=== PATIENT | female | born 1945 | race Caucasian/White ===

== ENCOUNTER 2017-04-30 06:31 | Day surgery (SDC) | payer MEDICARE, MEDICAID ==
[2017-04-24 14:58] LABS: BASOPHILS % (AUTO) 0.5 % (0-1); EOSINOPHILS # (AUTO) 0.8 X10'3 (0-0.9); EOSINOPHILS % (AUTO) 9.2 % (0-6); LYMPHOCYTES # (AUTO) 2.2 X10'3 (1.1-4.8); LYMPHOCYTES % (AUTO) 25.9 % (21-51); MEAN CORPUSCULAR HEMOGLOBIN 31.2 PG (27.0-31.0); MEAN CORPUSCULAR VOLUME 91.8 FL (78-98); MEAN PLATELET VOLUME 8.7 FL (7.4-10.4); MONOCYTES # (AUTO) 0.5 X10'3 (0-0.9); MONOCYTES % (AUTO) 6.4 % (2-12); PRE OP HEMATOCRIT 40.5 % (35.0-45.0); PRE OP HEMOGLOBIN 13.8 g/dL (12.0-16.0); PRE OP PLATELET COUNT 278 X10'3 (140-440); RED BLOOD COUNT 4.41 X10'6 (4.20-5.60); RED CELL DISTRIBUTION WIDTH 13.8 % (11.5-14.5)
[2017-04-24 15:04] LABS: ALBUMIN 3.5 G/DL (3.4-5.0); ALBUMIN/GLOBULIN RATIO 1.1 (1.1-1.5); ALKALINE PHOSPHATASE 51 IU/L (46-116); BLOOD UREA NITROGEN 18 MG/DL (7-18); BUN/CREATININE RATIO 16.4 (6.6-38.0); CALCIUM 8.5 MG/DL (8.5-10.1); CHLORIDE 106 MMOL/L (99-107); CLARITY,URINE Clear (Clear); COLOR,URINE Yellow (Yellow); GLUCOSE, URINE Negative (Neg); KETONES,URINE Negative (Neg); LEUKOCYTE ESTERASE ,URINE Small (Neg); NITRITES, URINE Negative (Neg); OCCULT BLOOD,URINE Negative (Neg); PH,URINE 6.5 (4.8-8.0); PRE OP ALT 19 U/L (30-65); PRE OP ANION GAP 9 (8-16); PRE OP AST 15 U/L (10-37); PRE OP BILIRUB, TOTAL 0.4 MG/DL (0.0-1.0); PRE OP GLUCOSE 142 MG/DL (70-104); PRE OP SODIUM 141 MMOL/L (135-145); PROTEIN,URINE Negative (Neg); TOTAL CARBON DIOXIDE 26.5 MMOL/L (24-32); TOTAL PROTEIN 6.7 G/DL (6.4-8.2); eGFR 49 ML/MIN
[2017-04-24 15:24] LABS: UA COLLECTION TYPE CLN CATCH MIDSTREAM
[2017-04-24 15:34] LABS: BACTERIA,URINE NONE SEEN /HPF (Neg); RBC,URINE 0-2 /HPF (0-2); SQUAMOUS EPITHELIAL CELL,UR FEW /LPF (FEW); WBC,URINE 0-4 /HPF (0-4)
[~2017-04-30] VITALS: Ht 175.3 cm; Wt 80.7 kg
[2017-04-30] VITALS (12 sets, daily range): BP systolic 113–142; BP diastolic 44–88
[~2017-04-30 06:31] MED LIST: ALBU18HF2 INH; ASCO500C15 PO; ASPI81TA48 PO; BUSP10TA11 PO; DIT5T PO; DOCUMENT DATE & TIME OF BETA-BLOCKER PO ONE; DULO-31 PO; FENO160T13 PO; GEMF600T PO; ISOS120T9 PO; LEVO25TA2 PO; LORA-512 PO; LYR25C PO; MELA3TAB PO; METO-539 PO; MORP15TA PO; NITR0.4T51 SL; PANT-47 PO; SIMV20TA5 PO; VENL75CA55 PO; famotidine 20mg tablet PO ONE; ringers solution, lacted 1,000 ML IV SCH
[2017-04-30] MEDS ORDERED: cefazolin/dext.iso 2gm/50ml 50 ML IV ONE (06:37)
[2017-04-30] MEDS ORDERED: LIDOcaine 1% (10mg/ml) 2ml vial ONE (06:53)
[2017-04-30] MEDS ORDERED: BUPIVAcaine/PF 2.5 mg/ml (0.25%) 30ml vial ONE ×2 (08:19→14:19)
[2017-04-30] MEDS ORDERED: epiNEPHrine 1 mg/ml inj ONE (14:19)
[2017-04-30] MEDS ORDERED: ceFAZolin 1000mg inj ONE (14:19)
[2017-04-30] MEDS ORDERED: meperidine/PF 50mg/ml syringe ONE (14:34)
[2017-04-30] MEDS ORDERED: midazolam 2 mg/2 ml injection ONE (14:34)
[2017-04-30] MEDS ORDERED: neostigmine methylsulfate 1 MG/ML 10ml vial ONE ×2 (14:35)
[2017-04-30] MEDS ORDERED: propofol inj 20 ML IV ONE (14:35)
[2017-04-30] MEDS ORDERED: dexamethasone sod phosphate 4mg/ml inj. ONE (14:35)
[2017-04-30] MEDS ORDERED: LIDOcaine 1%/PF (10mg/ml) 5ml vial ONE (14:35)
[2017-04-30] MEDS ORDERED: ondansetron/PF 4mg/2ml inj ONE (14:35)
[2017-04-30] MEDS ORDERED: glycopyrrolate 0.2mg/ml inj ONE (14:35)
[2017-04-30] MEDS ORDERED: rocuronium 10mg/ml inj IV ONE (14:35)
[2017-04-30] MEDS ORDERED: ringers solution, lacted 1,000 ML IV SCH (15:07)
[2017-04-30] MEDS: ceFAZolin 1000mg inj ONE ×2 (15:08→15:09)
[2017-04-30] MEDS ORDERED: hydrALAZINE 20mg/ml inj. IV PRN (15:10)
[2017-04-30] MEDS ORDERED: fentaNYL/PF 50MCG/1 ML 2ML syringe ONE (15:10)
[2017-04-30] MEDS ORDERED: labetalol 20mg/4ml (5mg/ml) syringe IV PRN (15:10)
[2017-04-30] MEDS ORDERED: fentaNYL/PF 50MCG/1 ML 2ML syringe IV PRN ×2 (15:10)
[2017-04-30] MEDS ORDERED: ondansetron/PF 4mg/2ml inj IV PRN (15:10)
[2017-04-30] MEDS ORDERED: hydrALAZINE 20mg/ml inj. IV ONE (15:33)
[2017-04-30] MEDS ORDERED: HYDROcodone/acetaminophen 10/325mg tab PO PRN (16:35)
== END 2017-04-30 17:34 | disposition home or self-care (01) ==
LOC: PAS 06:31
PROVIDERS: ATTEND Surgery
DX: K43.2 Incisional hernia without obstruction or gangrene (principal); K66.0 Peritoneal adhesions (postprocedural) (postinfection); E11.9 Type 2 diabetes mellitus without complications; E78.5 Hyperlipidemia, unspecified; F32.9 Major depressive disorder, single episode, unspecified; F41.9 Anxiety disorder, unspecified; G89.29 Other chronic pain; I10 Essential (primary) hypertension; I25.10 Atherosclerotic heart disease of native coronary artery without angina pectoris; J44.9 Chronic obstructive pulmonary disease, unspecified; K21.9 Gastro-esophageal reflux disease without esophagitis; M19.90 Unspecified osteoarthritis, unspecified site; M79.7 Fibromyalgia; I08.1 Rheumatic disorders of both mitral and tricuspid valves; E66.3 Overweight; Z79.82 Long term (current) use of aspirin; Z96.643 Presence of artificial hip joint, bilateral; Z90.710 Acquired absence of both cervix and uterus; Z95.5 Presence of coronary angioplasty implant and graft; Z80.3 Family history of malignant neoplasm of breast; Z91.041 Radiographic dye allergy status; Z91.013 Allergy to seafood; Z87.891 Personal history of nicotine dependence; Z79.899 Other long term (current) drug therapy; Z68.26 Body mass index [BMI] 26.0-26.9, adult
CPT/HCPCS: 36415; 49652; 80053; 81001; 85025; 87088; 93005; 93306; C1758; C1781; J0171; J0360; J0690; J1100; J2001; J2175; J2250; J2270; J2405; J2704; J2710; J3010; J3490; J7120; A7000

== ENCOUNTER 2023-05-14 18:20 | Emergency (ER) | payer MEDICARE, MEDICAID ==
[~2023-05-14] VITALS: Ht 162.6 cm; Wt 65.0 kg
[~2023-05-14 18:20] MED LIST changes: -ASCO500C15 PO; +ASCO500C18 PO; -DOCUMENT DATE & TIME OF BETA-BLOCKER PO ONE; +ISOS120T13 PO; -ISOS120T9 PO; -MELA3TAB PO; +MELA3TAB39 PO; +SIMV-42 PO; -SIMV20TA5 PO; -famotidine 20mg tablet PO ONE; -ringers solution, lacted 1,000 ML IV SCH
[2023-05-14] MEDS ORDERED: morphine 4 MG/ML inj SYRINge IV ONE (20:55)
[2023-05-14] MEDS ORDERED: LIDOcaine 1% W/epiNEPHrine 1:100,000 20ml vial SQ ONE (21:30)
[2023-05-14] MEDS ORDERED: LIDOCAINE 1%/EPI 1:100,000 inj. 10 ML multi-dose vial SQ ONE (21:35)
[2023-05-14 21:51] LABS: BILIRUBIN,URINE NEGATIVE (Neg); CLARITY,URINE SLIGHTLY CLOUDY (Clear); COLOR,URINE YELLOW (Yellow); GLUCOSE, URINE NEGATIVE (Neg); KETONES,URINE NEGATIVE (Neg); LEUKOCYTE ESTERASE ,URINE SMALL (Neg); NITRITES, URINE NEGATIVE (Neg); OCCULT BLOOD,URINE TRACE-INTACT (Neg); PH,URINE 7.5 (4.8-8.0); PROTEIN,URINE NEGATIVE (Neg); UROBILINOGEN,URINE 0.2 E.U/dL (0.2-1.0)
[2023-05-14] MEDS ORDERED: morphine 10mg/ml inj. IM ONE (21:55)
[2023-05-14 22:01] LABS: SQUAMOUS EPITHELIAL CELL,UR MANY /LPF (FEW); UA COLLECTION TYPE CLN CATCH MIDSTREAM
[2023-05-14 22:02] LABS: MUCUS STRANDS FEW /LPF (Neg); TRANSITIONAL EPI CELLS,URINE MODERATE /HPF
[2023-05-14 22:03] LABS: BACTERIA,URINE 1+ /HPF (Neg); RBC,URINE 0-2 /HPF (0-2)
[2023-05-14] MEDS ORDERED: ondansetron 4mg rapidly disintigrating tab PO ONE (22:35)
[2023-05-14] MEDS ORDERED: sulfamethoxazole/trimethoprim DS (800/160mg) tablet PO ONE (22:35)
[2023-05-14] MEDS ORDERED: HYDROmorphone 1 mg/ml syringe IM ONE (22:35)
[2023-05-14] MEDS ORDERED: SULF1TAB45 PO (22:51)
[2023-05-14 23:21] VITALS: BP 137/62; PULSE 93; RESP 18; TEMP 98.2; O2SAT 98
== END 2023-05-14 23:23 | disposition home or self-care (01) ==
LOC: ER 18:21
DX: L02.411 Cutaneous abscess of right axilla (principal); N76.4 Abscess of vulva; R11.2 Nausea with vomiting, unspecified; G89.29 Other chronic pain; E78.00 Pure hypercholesterolemia, unspecified; I10 Essential (primary) hypertension; J44.9 Chronic obstructive pulmonary disease, unspecified; E11.9 Type 2 diabetes mellitus without complications; M06.9 Rheumatoid arthritis, unspecified; J43.9 Emphysema, unspecified; Z90.710 Acquired absence of both cervix and uterus; Z95.5 Presence of coronary angioplasty implant and graft; Z91.041 Radiographic dye allergy status; Z91.013 Allergy to seafood; Z79.82 Long term (current) use of aspirin; Z79.899 Other long term (current) drug therapy; Z79.2 Long term (current) use of antibiotics
CPT/HCPCS: 81001; 87070; 96372; 99284; J1170; J2274; A6449